=== PATIENT | female | born 1940 | race Caucasian/White ===

== ENCOUNTER 2021-08-02 12:16 | Emergency (ER) | payer MEDICARE ==
[~2021-08-02] VITALS: Ht 152.4 cm; Wt 72.7 kg
[2021-08-02 12:20] VITALS: BP 131/89
--- NOTE | 2021-08-02 12:25 | NUR ---
CALL [facility] DAUGHTER IN [employer] FOR RIDE OR ANY QUESTIONS [phone]
[2021-08-02] MEDS ORDERED: ACET-1025 PO (13:04)
[2021-08-02] MEDS ORDERED: ketorolac tromethamine 15mg/ml inj. IM ONE (13:35)
== END 2021-08-02 13:42 | disposition home or self-care (01) ==
LOC: ER 12:18
DX: M25.511 Pain in right shoulder (principal); Z88.0 Allergy status to penicillin; Z79.899 Other long term (current) drug therapy
CPT/HCPCS: 73030; 96372; 99283; J1885

== ENCOUNTER 2022-07-28 09:02 | Inpatient (IN) | payer MEDICARE ==
[~2022-07-28] VITALS: Ht 152.4 cm; Wt 72.0 kg
[2022-07-28] MEDS ORDERED: furosemide 40mg/4ml inj IV ONE (09:35)
[2022-07-28 09:45] LABS: BASOPHILS # (AUTO) 0.2 X10'3 (0-0.2); BASOPHILS % (AUTO) 1.8 % (0-1); EOSINOPHILS # (AUTO) 0.3 X10'3 (0-0.9); EOSINOPHILS % (AUTO) 2.5 % (0-6); HEMATOCRIT 39.2 % (35.0-45.0); HEMOGLOBIN 12.9 g/dl (12.0-16.0); LYMPHOCYTES # (AUTO) 1.5 X10'3 (1.1-4.8); LYMPHOCYTES % (AUTO) 13.8 % (21-51); MEAN CORPUSCULAR HEMOGLOBIN 30.1 PG (27.0-31.0); MEAN CORPUSCULAR HGB CONC 32.8 g/dL (33.0-36.5); MEAN CORPUSCULAR VOLUME 91.8 FL (78-98); MEAN PLATELET VOLUME 8.7 FL (7.4-10.4); MONOCYTES # (AUTO) 1.1 X10'3 (0-0.9); MONOCYTES % (AUTO) 9.9 % (2-12); PLATELET COUNT 240 X10'3 (140-440); RED BLOOD COUNT 4.28 X10'6 (4.20-5.60); RED CELL DISTRIBUTION WIDTH 16.6 % (11.5-14.5); WHITE BLOOD COUNT 11.1 X10'3 (4.5-11.0)
[2022-07-28 09:57] LABS: APTT 36 SECONDS (22-32)
[2022-07-28 10:04] LABS: ALANINE AMINOTRANSFERASE 22 U/L (12-78); ALBUMIN/GLOBULIN RATIO 0.7 (1.1-1.5); ALKALINE PHOSPHATASE 203 IU/L (46-116); ANION GAP 10 (8-16); ASPARTATE AMINO TRANSFERASE 27 U/L (10-37); BLOOD UREA NITROGEN 24 MG/DL (7-18); BUN/CREATININE RATIO 14.6 (6.6-38.0); CHLORIDE 111 MMOL/L (99-107); CREATININE 1.64 MG/DL (0.40-0.90); GLUCOSE 134 MG/DL (70-104); POTASSIUM 4.5 MMOL/L (3.5-5.1); SODIUM 143 MMOL/L (135-145); TOTAL CARBON DIOXIDE 21.8 MMOL/L (24-32); TOTAL PROTEIN 7.5 G/DL (6.4-8.2); eGFR 30 ML/MIN
[2022-07-28] MEDS ORDERED: furosemide 10 MG/1 ML 10ml inj IV ONE (11:55)
[2022-07-28] MEDS ORDERED: LOSA25TA96 PO (12:25)
[2022-07-28] MEDS ORDERED: WARF-55 PO (12:25)
[2022-07-28] MEDS ORDERED: METO-477 PO (12:25)
[2022-07-28] MEDS ORDERED: metoprolol tartrate 50mg tablet PO ONE (12:55)
[2022-07-28] MEDS ORDERED: losartan 25mg tablet PO ONE (12:55)
[2022-07-28] MEDS ORDERED: PERFLUTREN PROTEIN-A MICROSPHR (Optison) 0.22 MG/ML 3ML VIAL IV ONE (14:35)
[2022-07-28] MEDS ORDERED: HYDROcodone/acetaminophen 10/325mg tab PO PRN (14:35)
[2022-07-28] MEDS ORDERED: potassium CL 10mEq/100ml bag 100 ML IV PRN (14:35)
[2022-07-28] MEDS ORDERED: HYDROcodone/acetaminophen 5mg/325mg tablet PO PRN (14:35)
[2022-07-28] MEDS ORDERED: magnesium 4gm in 100ml NS 100 ML IV PRN (14:35)
[2022-07-28] MEDS ORDERED: magnesium hydroxide 30ml (MOM) UD suspension PO PRN (14:35)
[2022-07-28] MEDS ORDERED: magnesium 2GM in 50ml NS 50 ML IV PRN (14:35)
[2022-07-28] MEDS ORDERED: mag hydrox/Alum hydrox/simeth 30ml oral suspension PO PRN (14:35)
[2022-07-28] MEDS ORDERED: acetaminophen 325mg tablet PO PRN ×2 (14:35)
[2022-07-28] MEDS ORDERED: ondansetron/PF 4mg/2ml inj IV PRN (14:35)
[2022-07-28] MEDS ORDERED: POTASSIUM BICARB 20meq eff tab 20 MEQ TABLET.EFF PO PRN (14:35)
[2022-07-28] MEDS ORDERED: PREG100C PO (16:13)
[2022-07-28] MEDS ORDERED: FAMO20TA8 PO (16:13)
[2022-07-28] MEDS ORDERED: POTA-192 PO (16:13)
[2022-07-28] MEDS ORDERED: FURO80TA3 PO (16:13)
[2022-07-28] MEDS ORDERED: TRAZ-256 PO (16:13)
[2022-07-28] MEDS ORDERED: ALLO100T PO (16:13)
--- NOTE | 2022-07-28 16:17 | NUR ---
MEDICATION REC COMPLETED. MESSAGE SENT TO DR. GRIGGS TO INFORM OF UPDATED MED LIST. PAGER ID: [phone] MESSAGE: ER BED #6 [id number]. THE MEDICATION REC IS COMPLETED NOW AND VERIFIED WITH PATIENT. PLEASE SEE IF YOU WOULD LIKE TO RENEW ANY OF THESE ADDITIONAL HOME MEDICATIONS. THANKS, CARMEN RN [id number]
--- NOTE | 2022-07-28 18:36 | NUR ---
Optison non- administered, no imaging ordered
[2022-07-28] MEDS: K and/or MAG REPLACEMENT MC SCH (20:00)
[2022-07-28] MEDS ORDERED: warfarin 2.5mg tablet PO ONE (21:00)
[2022-07-28] MEDS ORDERED: traZODone 50mg tablet PO SCH (21:00)
[2022-07-28] MEDS: metoprolol tartrate 50mg tablet PO SCH (21:54)
[2022-07-28] MEDS: pregabalin 25mg capsule PO SCH (21:54)
[2022-07-28] MEDS: docusate sod 100mg capsule PO SCH (21:54)
[2022-07-28] MEDS: furosemide 40mg/4ml inj IV SCH (21:55)
--- NOTE | 2022-07-28 23:30 | NUR ---
Patient in room PCU 3018. I have received report from Ayaka FRY and had the opportunity to ask questions and assume patient care.
[2022-07-28 23:40] VITALS: BP 168/84
[2022-07-29 02:00] VITALS: BP 156/79
[2022-07-29 06:00] VITALS: BP 140/55
[2022-07-29 07:02] LABS: BASOPHILS # (AUTO) 0.2 X10'3 (0-0.2); EOSINOPHILS # (AUTO) 0.4 X10'3 (0-0.9); HEMATOCRIT 41.2 % (35.0-45.0); MONOCYTES # (AUTO) 1.2 X10'3 (0-0.9); RED CELL DISTRIBUTION WIDTH 16.3 % (11.5-14.5)
[2022-07-29 07:05] LABS: BASOPHILS % (AUTO) 2.1 % (0-1); EOSINOPHILS % (AUTO) 4.4 % (0-6); HEMOGLOBIN 13.8 g/dl (12.0-16.0); LYMPHOCYTES # (AUTO) 1.8 X10'3 (1.1-4.8); LYMPHOCYTES % (AUTO) 19.7 % (21-51); MEAN CORPUSCULAR HEMOGLOBIN 30.3 PG (27.0-31.0); MEAN CORPUSCULAR HGB CONC 33.4 g/dL (33.0-36.5); MEAN CORPUSCULAR VOLUME 90.8 FL (78-98); MEAN PLATELET VOLUME 8.8 FL (7.4-10.4); MONOCYTES % (AUTO) 12.4 % (2-12); NEUTROPHILS # (AUTO) 5.7 X10'3 (1.8-7.7); NEUTROPHILS % (AUTO) 61.4 % (42-75); PLATELET COUNT 226 X10'3 (140-440); RED BLOOD COUNT 4.54 X10'6 (4.20-5.60); WHITE BLOOD COUNT 9.3 X10'3 (4.5-11.0)
[2022-07-29 07:17] LABS: ALANINE AMINOTRANSFERASE 19 U/L (12-78); ALBUMIN 2.9 G/DL (3.4-5.0); ALBUMIN/GLOBULIN RATIO 0.7 (1.1-1.5); ALKALINE PHOSPHATASE 179 IU/L (46-116); ANION GAP 13 (8-16); ASPARTATE AMINO TRANSFERASE 23 U/L (10-37); BILIRUBIN,TOTAL 1.3 MG/DL (0.1-1.0); BLOOD UREA NITROGEN 22 MG/DL (7-18); BUN/CREATININE RATIO 17.2 (6.6-38.0); CALCIUM 8.7 MG/DL (8.5-10.1); CHLORIDE 109 MMOL/L (99-107); CREATININE 1.28 MG/DL (0.40-0.90); GLUCOSE 103 MG/DL (70-104); MAGNESIUM 1.8 MG/DL (1.5-2.4); SODIUM 146 MMOL/L (135-145); TOTAL CARBON DIOXIDE 23.6 MMOL/L (24-32); eGFR 40 ML/MIN
[2022-07-29 07:21] LABS: POTASSIUM 2.9 MMOL/L (3.5-5.1)
[2022-07-29] MEDS: K and/or MAG REPLACEMENT MC SCH (07:26)
[2022-07-29] MEDS: furosemide 40mg/4ml inj IV SCH (07:54)
[2022-07-29] MEDS: POTASSIUM BICARB 20meq eff tab 20 MEQ TABLET.EFF PO PRN ×2 (07:54→11:54)
[2022-07-29] MEDS: docusate sod 100mg capsule PO SCH (07:55)
[2022-07-29] MEDS: metoprolol tartrate 50mg tablet PO SCH (07:57)
[2022-07-29] MEDS: pregabalin 25mg capsule PO SCH (07:58)
[2022-07-29] MEDS ORDERED: allopurinol 100mg tablet PO SCH (08:00)
[2022-07-29] MEDS ORDERED: losartan 25mg tablet PO SCH (08:00)
[2022-07-29] MEDS ORDERED: famotidine 20mg tablet PO SCH (08:00)
[2022-07-29] MEDS ORDERED: metoprolol succinate 25mg (24-HOUR) SR. Tablet PO SCH (08:00)
[2022-07-29 11:00] VITALS: BP 126/55
[2022-07-29 14:49] LABS: ALBUMIN 2.7 G/DL (3.4-5.0); ANION GAP 7 (8-16); BLOOD UREA NITROGEN 27 MG/DL (7-18); BUN/CREATININE RATIO 17.2 (6.6-38.0); CALCIUM 9.1 MG/DL (8.5-10.1); CHLORIDE 108 MMOL/L (99-107); CREATININE 1.57 MG/DL (0.40-0.90); GLUCOSE 131 MG/DL (70-104); POTASSIUM 4.7 MMOL/L (3.5-5.1); SODIUM 145 MMOL/L (135-145); TOTAL CARBON DIOXIDE 30.1 MMOL/L (24-32); eGFR 32 ML/MIN
[2022-07-29 15:00] VITALS: BP 130/58
[2022-07-29] MEDS ORDERED: FURO80TA3 PO (15:27)
[2022-07-29] MEDS ORDERED: METO-477 PO (15:27)
[2022-07-29] MEDS ORDERED: POTA-188 PO (15:33)
--- NOTE | 2022-07-29 16:30 | NUR ---
Patient discharged home with son, IV dc'd, tele box returned to box. No home mends. Meds escripted to preferred pharmacy. Patient driven home by son. case mgt messaged about possible orders for home health and son will f/u, case mgt already gone for the day. Pt appears stable for discharge.
[2022-07-29] MEDS ORDERED: warfarin 2.5mg tablet PO ONE (21:00)
== END 2022-07-29 16:37 | disposition home or self-care (01) | DRG 291 ==
LOC: ER 09:03 → ED HOLD 14:39 → EDBEDREQ 20:52 → EDBEDREQTM 20:56 → EDBEDREQ 20:58 → PCU 3S 23:22
PROVIDERS: ADMIT Family Medicine; ATTEND Family Medicine
DX: I13.0 Hypertensive heart and chronic kidney disease with heart failure and stage 1 through stage 4 chronic kidney disease, or unspecified chronic kidney disease (principal); I50.33 Acute on chronic diastolic (congestive) heart failure; N17.9 Acute kidney failure, unspecified; I48.91 Unspecified atrial fibrillation; N18.30 Chronic kidney disease, stage 3 unspecified; D72.823 Leukemoid reaction; E87.6 Hypokalemia; Z20.822 Contact with and (suspected) exposure to COVID-19; I08.1 Rheumatic disorders of both mitral and tricuspid valves; Z66 Do not resuscitate; Z88.0 Allergy status to penicillin; Z79.899 Other long term (current) drug therapy; Z82.49 Family history of ischemic heart disease and other diseases of the circulatory system
CPT/HCPCS: 36415; 71045; 80048; 80053; 83735; 83880; 84484; 85025; 85610; 85730; 87081; 87502; 87503; 87635; 93005; 93306; 96374; 96376; 97162; 97530; 99285; C9803; G0378; J1940